=== PATIENT | female | born 1935 | race Two or more races ===

== ENCOUNTER 2019-09-11 07:03 | Day surgery (SDC) | payer OTHER ==
[~2019-09-11 07:03] MED LIST: EVISTA60 MG PO; ZESTRIL40 M1 PO
[2019-09-11] MEDS ORDERED: COLACE100 MG PO (11:47)
[2019-09-11] MEDS ORDERED: ULTRACET PO (11:47)
== END 2019-09-11 17:10 | disposition home or self-care (01) ==
LOC: CIR.AMB 07:03
PROVIDERS: ATTEND Surgery
DX: D12.8 Benign neoplasm of rectum (principal)
CPT/HCPCS: 0184T; 64430